=== PATIENT | male | born 1970 | race Caucasian/White ===

== ENCOUNTER 2024-03-29 11:15 | Emergency (ER) | payer BC, SELFPAY ==
[2024-03-29] VITALS (8 sets, daily range): BP systolic 130–166; BP diastolic 81–98; PULSE 42–50; TEMP 36.3; O2SAT 95–100; BMI 31.0
--- NOTE | 2024-03-29 11:31 | CT_ITS ---
[address] [address] Patient Name: LIBERTY FERMIN MRN: [id number] date: 1970 Sex: M Assigned Patient Location: ER Current Patient Location: ER Accession/Order Number: [id number] Exam Date: 03/29/2024 12:22 Report Date: 03/29/2024 13:22 At the request of: JONEL CANO Procedure: CT abdomen pelvis wo con EXAM: CT abdomen pelvis wo con HISTORY: left flank pain . History of renal calculi and diverticulitis. COMPARISON: CT scans 10/10/2019 including exams without and with contrast. TECHNIQUE: CT abdomen pelvis without contrast. Axial scans with reformatted coronal and sagittal images. Individualized dose reduction used for this exam. FINDINGS: Lower chest: Lung bases clear, lower chest unremarkable. No acute abnormality. ABDOMEN: Liver unremarkable without focal lesion. Normal-appearing gallbladder, no biliary dilatation. 14 mm left adrenal nodule low-attenuation consistent with benign adenoma new from previous. Right adrenal unremarkable. The pancreas, spleen unremarkable. No ascites or free fluid. No adenopathy. Normal size aorta. Kidneys urinary tract: Mild left hydronephrosis and hydroureter secondary to an obstructing calculus in the proximal ureter at the L3-4 level approximately 5 cm below the UP junction calculus approximately 5.2 mm diameter. Reference axial series 3 image 75, coronal series 5 image 58. Left ureter below this normal to the bladder. Low-attenuation lesion mid left kidney probable cortical cyst 1.6 cm. Multiple nonobstructing left renal calculi including an upper pole calculus 4.6 mm and mid renal calculus 5 mm. Other smaller calculi. Multiple nonobstructing right renal calculi, and no right hydronephrosis, normal ureter. Dominant calculi 7 mm upper pole and 8.3 mm lower pole. Numerous other smaller calculi. No bowel dilatation wall thickening or edema. Normal-appearing appendix right lower quadrant. Moderate gas and stool throughout the colon. Surgical clip sigmoid colon. No pericolonic fluid or inflammation. Large amount of fluid in the stomach consistent with recent meal. Pelvis: Enlarged prostate with calcification. Prostate approximately 5.5 x 4 cm diameter. Fluid-filled the bladder is fully heterogeneous possible debris or hemorrhage. Fat-containing right inguinal hernia. No adenopathy or free fluid. MUSCULOSKELETAL: No fracture or suspicious focal bone lesion. CT/CT abdomen pelvis wo con IMPRESSION: 1. Mild left hydronephrosis and ureter secondary to obstructing calculus in the proximal ureter approximately 5 cm below the UP junction. Calculus diameter 5.2 mm. 2. Multiple nonobstructing left and right renal calculi. No right ureteral calculus seen. 3. Enlarged prostate. Slightly heterogeneous fluid in the bladder possible debris or hemorrhage. 4. No bowel dilatation wall thickening or edema. Previous sigmoid colon surgery. Large amount of fluid in the stomach consistent with recent meal. Electronically authenticated by: VIDYA WATERS Date: 03/29/2024 13:22
[2024-03-29 11:39] LABS: Basophils Absolute Auto 0.1 10^3/uL (0.0-0.1); Basophils Percent Auto 0.8 % (0.2-2.0); Eosinophils Absolute Auto 0.2 10^3/uL (0.0-0.7); Eosinophils Percent Auto 2.7 % (0.9-7.0); Hematocrit 48.4 % (42.0-54.0); Hemoglobin 15.8 g/dL (14.0-18.0); Immature Granulocytes Abs Auto 0.04 10^3/uL (0.00-0.03); Immature Granulocytes Pct Auto 0.5 % (0.0-0.5); Lymphocytes Percent Auto 35.8 % (20.5-60.0); Mean Corpuscular HGB Conc 32.6 g/dL (29.9-35.2); Mean Corpuscular Hemoglobin 28.8 pg (25.9-34.0); Mean Corpuscular Volume 88.2 fL (80.0-94.0); Monocytes Absolute Auto 0.8 10^3/uL (0.3-0.8); Monocytes Percent Auto 9.2 % (1.7-12.0); Neutrophils Absolute Auto 4.2 10^3/uL (1.4-6.5); Platelet Count 275 10^3/uL (150-450); Red Blood Count 5.49 10^6/uL (4.70-6.10); Red Cell Distribution Width 12.9 % (11.0-15.0); White Blood Count 8.3 10^3/uL (4.0-11.0)
[2024-03-29] MEDS: 0.9 % SODIUM CHLORIDE 1,000 ML 999 ML IV (11:44)
[2024-03-29] MEDS: KETOROLAC TROMETHAMINE 30 MG/ML VIAL 15 MG IVP ×2 (11:44→13:41)
[2024-03-29] MEDS: MORPHINE SULFATE 4 MG/ML VIAL IV (11:44)
[2024-03-29] MEDS: ONDANSETRON PF 4 MG/2 ML VIAL IV (11:45)
[2024-03-29 11:47] LABS: Anion Gap 14.4; BUN Creatinine Ratio 10.5; Calcium 9.9 mg/dL (8.5-10.1); Carbon Dioxide 25.6 mmol/L (21.0-32.0); Chloride 105 mmol/L (98-107); Estimated GFR (African America >60 (>=60); Estimated GFR (Non-African Ame 56 (>=60); Glucose 110 mg/dL (74-106); Sodium 141 mmol/L (136-145)
--- NOTE | 2024-03-29 12:36 | ED.GENADUL1 ---
HPI HPI - General Adult General Chief complaint: Abdominal Pain Stated complaint: ABDOMINAL PAIN Time Seen by Provider: 03/29/24 11:27 Source: patient Mode of arrival: walk-in Limitations: no limitations History of Present Illness HPI narrative: 54-year-old male to the emergency Department chief complaint of sudden onset of left-sided flank pain that began approximately an hour prior to arrival. He has a history kidney stones similar presentations. His otherwise been at his baseline health. He reports nausea without vomiting. Denies any fever, sweats, chills. Falls with [facility]. Related Data Previous Rx's ?Medication ?Instructions ?Recorded naproxen 500 mg tablet 500 mg PO BID PRN pain #14 tabs 03/29/24 ondansetron 4 mg disintegrating 4 mg PO Q8H PRN nausea and 03/29/24 tablet vomiting 4 days #16 tabs oxycodone-acetaminophen 5 mg-325 1 tab PO Q4H PRN pain #18 tabs 03/29/24 mg tablet (Percocet) tamsulosin 0.4 mg capsule (Flomax) 0.4 mg PO DAILY #14 caps 03/29/24 Allergies Allergy/AdvReac Type Severity Reaction Status Date / Time No Known Drug Allergies Allergy Verified 03/29/24 11:21 Opioid HPI Opioid Management Most Recent Opioid Data: Last Pain Scale 10 03/29/24 11:31 Last ED Pain Assessment 03/29/24 12:37 Review of Systems ROS Status of ROS 10 or more systems reviewed and unremarkable except as noted in history and below Exam Narrative Exam Narrative: VITALS: I have reviewed the triage vital signs. GENERAL: Well developed, well appearing adult in no acute distress. NEURO: Alert and oriented. Moves all extremities. Face is symmetric and expressive. EYES: PERRL. No scleral icterus or conjunctival injection. No discharge. HENT: Normocephalic, atraumatic. Hearing is grossly intact. Nares grossly patent and without discharge. Mucous membranes moist. NECK: No JVD. Patient moves neck without restriction. CARDIO: Rhythm regular. Normal rate. PULM: Easy respirations. No increased work of breathing. No conversational dyspnea. GI/: Abdomen is soft and non-tender. Normoactive bowel sounds. EXTREMITIES: Symmetric muscle bulk. No joint swelling. No clubbing, cyanosis, or deformity. SKIN: Warm and dry. Normal turgor. No rash or lesions appreciated. PSYCH: Mood, affect, and interaction is appropriate to the setting. Constitutional Vital Signs, click to edit/add: Last Vital Signs Temp 97.4 F L 03/29/24 11:22 Pulse 42 L 03/29/24 14:37 Resp 18 03/29/24 14:37 BP 130/81 03/29/24 14:37 Pulse Ox 95 03/29/24 14:37 O2 Del Method Room Air 03/29/24 11:22 Course Vital Signs Vital signs: Vital Signs Temperature 97.4 F L 03/29/24 11:22 Pulse Rate 50 L 03/29/24 11:22 Respiratory Rate 20 03/29/24 11:22 Blood Pressure 166/98 H 03/29/24 11:22 Pulse Oximetry 99 03/29/24 11:22 Oxygen Delivery Method Room Air 03/29/24 11:22 Temperature 97.4 F L 03/29/24 11:22 Pulse Rate 42 L 03/29/24 14:37 Respiratory Rate 18 03/29/24 14:37 Blood Pressure 130/81 03/29/24 14:37 Pulse Oximetry 95 03/29/24 14:37 Oxygen Delivery Method Room Air 03/29/24 11:22 Medical Decision Making MDM Narrative Medical decision making narrative: 54-year-old male to the emergency Department with chief complaint of kidney stone pain. Vital stablee, the patient is afebrile. Order CT scan, urinalysis, basic labs. Morphine, Toradol, Zofran for symptoms. He is a significant amount of painful distress upon arrival. Patient agrees with this plan. Laboratory evaluation completed, results reviewed and noted. No major abnormalities. CT scan shows a 5 mm kidney stone at the UPJ. Patient reexamined. His symptoms are controlled. Patient is a candidate for outpatient therapy. He is given urology referral. Symptomatically medications for home. Return impressions were discussed. All questions were answered. The patient was discharged home. Medical Records Medical records reviewed: Yes I reviewed the patient's medical records Lab Data Lab results reviewed: Yes I reviewed the patient's lab results Labs: Lab Results 03/29/24 03/29/24 Range/Units 11:23 14:00 WBC 8.3 (4.0-11.0) 10^3/uL RBC 5.49 (4.70-6.10) 10^6/uL Hgb 15.8 (14.0-18.0) g/dL Hct 48.4 (42.0-54.0) % MCV 88.2 (80.0-94.0) fL MCH 28.8 (25.9-34.0) pg MCHC 32.6 (29.9-35.2) g/dL RDW 12.9 (11.0-15.0) % Plt Count 275 (150-450) 10^3/uL MPV 10.0 (9.5-13.5) fL Neut % (Auto) 51.0 (43.0-75.0) % Lymph % (Auto) 35.8 (20.5-60.0) % [place] % (Auto) 9.2 (1.7-12.0) % Eos % (Auto) 2.7 (0.9-7.0) % Baso % (Auto) 0.8 (0.2-2.0) % Neut # (Auto) 4.2 (1.4-6.5) 10^3/uL Lymph # (Auto) 3.0 (1.2-3.8) 10^3/uL [place] # (Auto) 0.8 (0.3-0.8) 10^3/uL Eos # (Auto) 0.2 (0.0-0.7) 10^3/uL Baso # (Auto) 0.1 (0.0-0.1) 10^3/uL Abs Immat Gran (auto) 0.04 H (0.00-0.03) 10^3/uL Imm/Tot Granulo (auto) 0.5 (0.0-0.5) % Sodium 141 (136-145) mmol/L Potassium 4.0 (3.5-5.1) mmol/L Chloride 105 (98-107) mmol/L Carbon Dioxide 25.6 (21.0-32.0) mmol/L Anion Gap 14.4 BUN 14.0 (7.0-18.0) mg/dL Creatinine 1.33 H (0.70-1.30) mg/dL Est GFR ( Amer) >60 (>=60) Est GFR (Non-Af Amer) 56 L (>=60) BUN/Creatinine Ratio 10.5 Glucose 110 H (74-106) mg/dL Calcium 9.9 (8.5-10.1) mg/dL Urine Color Brown A (YELLOW) Urine Clarity Clear (CLEAR) Urine pH 7.0 (5.0-9.0) Ur Specific [place] 1.020 (1.005-1.025) Urine Protein Trace (NEG/TRACE) mg/dL Urine Glucose (UA) Negative (NEGATIVE) mg/dL Urine Ketones Negative (NEGATIVE) mg/dL Urine Occult Blood Large A (NEGATIVE) Urine Nitrite Negative (NEGATIVE) Urine Bilirubin Negative (NEGATIVE) Urine Urobilinogen 1.0 (0.2-1.0) EU/dL Ur Leukocyte Esterase Negative (NEGATIVE) Urine RBC >100 A (0-2) #/HPF Urine WBC 0-2 A (NONE SEEN) #/HPF Ur Squamous Epith Cells Rare (NONE/RARE) #/LPF Urine Crystals None seen (None Seen) #/HPF Urine Bacteria Trace A (NONE SEEN) #/HPF Urine Casts None seen (NONE SEEN) #/LPF Urine Mucus None seen (NONE SEEN) Ur Culture Indicated? No Imaging Data CT scan - abdomen: Attestation: I personally reviewed and interpreted this imaging study as follows: Radiologist's impression: ITS Impressions Abdomen/Pelvis CT 03/29/24 11:31 IMPRESSION: 1. Mild left hydronephrosis and ureter secondary to obstructing calculus in the proximal ureter approximately 5 cm below the UP junction. Calculus diameter 5.2 mm. 2. Multiple nonobstructing left and right renal calculi. No right ureteral calculus seen. 3. Enlarged prostate. Slightly heterogeneous fluid in the bladder possible debris or hemorrhage. 4. No bowel dilatation wall thickening or edema. Previous sigmoid colon surgery. Large amount of fluid in the stomach consistent with recent meal. Electronically authenticated by: VIDYA WATERS Date: 03/29/2024 13:22 Discharge Plan Discharge Stand Alone Forms: Portal Instructions Chief Complaint: Abdominal Pain Clinical Impression: Renal colic on left side Patient Disposition: Home, Self-Care Time of Disposition Decision: 14:24 Condition: Good Mode of Transportation: Private Vehicle Prescriptions / Home Meds: New tamsulosin [Flomax] 0.4 mg capsule 0.4 mg PO DAILY Qty: 14 0RF naproxen 500 mg tablet 500 mg PO BID PRN (Reason: pain) Qty: 14 0RF ondansetron 4 mg tablet,disintegrating 4 mg PO Q8H PRN (Reason: nausea and vomiting) 4 Days Qty: 16 0RF oxycodone-acetaminophen [Percocet] 5-325 mg tablet 1 tab PO Q4H PRN (Reason: pain) Qty: 18 0RF Print Language: Italian Instructions: Renal Colic (ED) Additional Instructions: Strain urine. Referrals: Robles Spencer MD [Physician] - 1 week (Return to the ED if symptoms worsening. ) Zana Camp MD [Primary Care Provider] - 1 week Discharge Date/Time: 03/29/24 14:41
[2024-03-29] MEDS: HYDROMORPHONE HCL 0.5 MG/0.5 ML SYRINGE IV (13:40)
[2024-03-29 14:10] LABS: Bilirubin Urine NEGATIVE (NEGATIVE); Blood Urine LARGE (NEGATIVE); Clarity Urine CLEAR (CLEAR); Glucose Urine UA NEGATIVE (NEGATIVE); Ketones Urine NEGATIVE (NEGATIVE); Leukocyte Esterase Urine NEGATIVE (NEGATIVE); Nitrite Urine NEGATIVE (NEGATIVE); Protein Urine TRACE mg/dL (NEG/TRACE)
[2024-03-29 14:12] LABS: Color Urine BROWN (YELLOW); Urine Microscopic Indicated YES
[2024-03-29 14:21] LABS: Bacteria Urine TRACE #/HPF (NONE SEEN); Cast Seen? NONE SEEN #/LPF (NONE SEEN); Crystals Seen? None Seen #/HPF (None Seen); Mucus Urine NONE SEEN (NONE SEEN); RBC Urine >100 #/HPF (0-2); Squamous Epithelial Cell Urine RARE #/LPF (NONE/RARE); Urine Culture Indicated NO; WBC Urine 0-2 #/HPF (NONE SEEN)
== END 2024-03-29 14:41 | disposition home or self-care (01) ==
PROVIDERS: Emergency Provider Student in an Organized Health Care Education/Training Program; PCP Family Medicine
DX: N13.2 Hydronephrosis with renal and ureteral calculous obstruction (principal); R10.9 Unspecified abdominal pain; Z87.442 Personal history of urinary calculi
CPT/HCPCS: 36415; 74176; 80048; 81001; 85025; 96374; 96375; 96376; 99284; J1170

== ENCOUNTER 2024-03-31 06:36 | Observation (INO) | payer BC, SELFPAY ==
[2024-03-31] VITALS (31 sets, daily range): BP systolic 133–173; BP diastolic 64–102; PULSE 52–72; TEMP 36.2–36.9; O2SAT 82–98; BMI 31.0; BMI 30.3
--- NOTE | 2024-03-31 | FL_ITS ---
[address] [address] Patient Name: LIBERTY FERMIN MRN: [id number] date: 1970 Sex: M Assigned Patient Location: MS Current Patient Location: Accession/Order Number: [id number] Exam Date: 03/31/2024 19:30 Report Date: 04/02/2024 08:31 At the request of: OMKAR CASTREJON Procedure: FL fluoroscopy <1hr NON-READ EXAM: FL fluoroscopy <1hr NON-READ HISTORY: TECHNIQUE: FINDINGS: Please see Operative Report. Electronically authenticated by: RADIOLOGIST NO Date: 04/02/2024 08:31
--- OUTSIDE RECORDS SUMMARY | 2024-03-31 06:42 | XMS_ITS | CCD ---
Author Organization [facility] Care Team Providers Care Risk Control Officer Name Role Phone OMKAR CASTREJON Primary Care Unavailable PAY, SUSY Admitting Unavailable PAY, SUSY Attending Unavailable MIREILLE GARCIA V Consulting Unavailable PAY, SUSY Consulting Unavailable RAMYA, WES Consulting Unavailable OMKAR CASTREJON Admitting Unavailable OMKAR CASTREJON Attending Unavailable MIREILLE GARCIA V Consulting Unavailable OMKAR CASTREJON Consulting Unavailable Problems Active Problems Problem Classification Problem Date Documented Da te Episodic/Chronic Spondylosis; intervertebral disc disorders; other back problems (4 sources) Dorsalgia, unspecified; Translations: [DORSALGIA UNSPECIFIED] Onset: 07-06-2020 Episodic Past or Other Problems Problem Classification Problem Date Documented Da te Episodic/Chronic Abdominal pain (4 sources) Unspecified abdominal pain; Translations: [UNSPECIFIED ABDOMINAL PAIN] Onset: 10-10-2019 Episodic Calculus of urinary tract (2 sources) Calculus of ureter; Translations: [Personal history of urinary calculi] Onset: 10-14-2019 Episodic Nausea and vomiting (1 source) Nausea; Translations: [NAUSEA] Onset: 10-14-2019 Episodic Results Test Name Value Interpretation Reference Range Facil ity XR TSPINE 2 VIEWSon 07-06-20 20 XR TSPINE 2 VIEWS EXAMINATION: XR TSPINE 2 VIEWS HISTORY: Pain in thoracic spine COMPARISON: No relevant comparison available. FINDINGS: BONES: Mild widespread spondylosis and facet osteoarthritis. No visible acute bony abnormality. DISC SPACES: Normal. No significant disc height narrowing, subluxation, or endplate abnormality. PARASPINOUS: Negative. No paraspinous abnormality is seen. OTHER: Negative. IMPRESSION: Mild degenerative changes Electronically authenticated by: MIREILLE GARCIA Date: 2020-07-06 14:36 Normal [facility] XR TSPINE 2 VIEWS EXAMINATION: XR TSPINE 2 VIEWS HISTORY: Pain in thoracic spine ; acute pain between shoulder blades COMPARISON: No relevant comparison available. FINDINGS: BONES: No significant spondylosis, scoliosis, fracture, or visible bony lesion. DISC SPACES: No significant disc height narrowing, subluxation, or endplate abnormality. PARASPINOUS: Negative. No paraspinous abnormality is seen. OTHER: Negative. IMPRESSION: 1. No acute bone abnormality or significant degenerative changes. Electronically authenticated by: SIM MCLAUGHLIN Date: 2020-07-06 14:28 Normal [facility] CBC AUTO DIFFon 10-10-2019 Basophils (Bld) [#/Vol] 0.0 103/ul Normal 0.0-0.1 [facility] Comment on above: Performed By: #### C BC #### [facility] [address] [id number] [place] Basophils/100 WBC (Bld) 0.4 % Normal 0.2-2.0 [facility] Comment on above: Performed By: #### C BC #### [facility] [address] [place] [address] [place] Eosinophils (Bld) [#/Vol] 0.1 103/ul Normal 0.0-0.7 [facility] Comment on above: Performed By: #### C BC #### [facility] [address] [place], [place] [id number] [place] Eosinophils/100 WBC (Bld) 1.4 % Normal 0.9-7.0 [facility] Comment on above: Performed By: #### C BC #### [facility] [address] [place], [place] [phone] [place] Erythrocyte distribution width (RBC) [Ratio] 13.1 % Normal 11.0-15.0 [facility] Comment on above: Performed By: #### C BC #### [facility] [address] [place], [place] [phone] [place] Hematocrit (Bld) [Volume fraction] 50.0 % Normal 42.0-54.0 [facility] Comment on above: Performed By: #### C BC #### [facility] [address] [place] [address] [place] Hemoglobin (Bld) [Mass/Vol] 16.8 g/dL Normal 14.0-18.0 [facility] Comment on above: Performed By: #### C BC #### [facility] [address] [place], [place] [address] [place] IG # 0.04 10e3/ul Critically high 0.00-0.03 [facility] Comment on above: Performed By: #### C BC #### [facility] [address] [id number] [place] IG % 0.5 % Normal 0.0-0.5 [facility] Comment on above: Performed By: #### C BC #### [facility] [address] [id number] [place] Lymphocytes (Bld) [#/Vol] 2.4 103/ul Normal 1.2-3.8 [facility] Comment on above: Performed By: #### C BC #### [facility] [address] [place], [place] [phone] [place] Lymphocytes/100 WBC (Bld) 29.3 % Normal 20.5-60.0 [facility] Comment on above: Performed By: #### C BC #### [facility] [address] [place], [place] [phone] [place] MANUAL DIFF REQ NO Normal [facility] Comment on above: Performed By: #### C BC #### [facility] [address] [place] [address] [place] MCH (RBC) [Entitic mass] 29.3 pg Normal 25.9-34.0 [facility] Comment on above: Performed By: #### C BC #### [facility] [address] [place], [place] [phone] [place] MCHC (RBC) [Mass/Vol] 33.6 g/dL Normal 29.9-35.2 [facility] Comment on above: Performed By: #### C BC #### [facility] [address] [place], [place] [phone] [place] MCV (RBC) [Entitic vol] 87.1 fL Normal 80.0-94.0 [facility] Comment on above: Performed By: #### C BC #### [facility] [address] [place], [place] [address] [place] Monocytes (Bld) [#/Vol] 0.7 103/ul Normal 0.3-0.8 [facility] Comment on above: Performed By: #### C BC #### [facility] [address] [place], [place] [address] [place] Monocytes/100 WBC (Bld) 8.2 % Normal 1.7-12.0 [facility] Comment on above: Performed By: #### C BC #### [facility] [address] [place] [address] [place] Neutrophils (Bld) [#/Vol] 4.8 103/ul Normal 1.4-6.5 [facility] Comment on above: Performed By: #### C BC #### [facility] [address] [place] [address] [place] Neutrophils/100 WBC (Bld) 60.2 % Normal 43.0-75.0 [facility] Comment on above: Performed By: #### C BC #### [facility] [address] [place] [address] [place] Platelet mean volume (Bld) [Entitic vol] 10.2 fL Normal 9.5-13.5 [facility] Comment on above: Performed By: #### C BC #### [facility] [address] [place] [address] [place] Platelets (Bld) [#/Vol] 192 103/ul Normal 150-450 [facility] Comment on above: Result Comment: Plat elet clumps seen on slide. Count may be falsely decreased. Performed By: #### C BC #### [facility] [address] [place] [address] [place] RBC (Bld) [#/Vol] 5.74 106/ul Normal 4.70-6.10 [facility] Comment on above: Performed By: #### C BC #### [facility] [address] [place] [address] [place] WBC (Bld) [#/Vol] 8.0 103/ul Normal 4.0-11.0 [facility] Comment on above: Performed By: #### C #### [facility] [address] [phone] [address] ABD/PELVIS WO CONon 10-10 CT ABD/PELVIS WO CON Patient: LIBERTY FERMIN Exam Date: 10/10/2019 : 1970 Gender:M Ordering : SHARLA MAGDALENO Admission #: [id number] Family : DR SUSY STILL D.O. Order #: [id number] CLICK HERE TO VIEW EXAM RADIOLOGY REPORT PROCEDURE: CT ABDOMEN AND PELVIS WITHOUT CONTRAST COMPARISON: CT ABD/PELVIS WO CON, 05/12/2018. INDICATIONS: Acute right flank pain, calculus of kindey TECHNIQUE: Axial, Coronal, and Sagittal CT images of the abdomen and pelvis were created without IV contrast material. DOSE: 2186 mGycm FINDINGS: KIDNEY - RIGHT: Numerous nonobstructing nephroliths. Mild hydronephrosis URETER - RIGHT: Mild hydroureter extending to a 4 mm round calcification in the mid ureter axial image 81 KIDNEY - LEFT: Numerous nonobstructing nephroliths. No hydronephrosis URETER - LEFT: No calcifications or abnormal dilation. URINARY BLADDER: No calculus, visible focal wall thickening, or lesion. LUNG BASES: No visible pulmonary or pleural disease. LIVER: No enlargement, atrophy, abnormal density, or significant focal lesion. BILIARY: No visible dilatation or calcification. PANCREAS: No lesion, fluid collection, ductal dilatation, or atrophy. SPLEEN: No enlargement or focal lesion. ADRENALS: No mass or enlargement. BOWEL/MESENTERY: Colonic diverticulosis. Thickened appearance of the sigmoid colon likely related to non distention. Normal appendix. AORTA/VASCULAR: No aneurysm. RETROPERITONEUM: No mass or adenopathy. LYMPH NODES: No adenopathy. PELVIC ORGANS: No visible mass. Pelvic organs appropriate for patient age. ABDOMINAL WALL: No mass or hernia. BONES: No bony lesion or fracture. CONCLUSION: 1. 4 mm right mid ureterolith with mild associated obstructive uropathy Dictated by: Mireille Garcia M.D. on 10/10/2019 at 13:02 Approved by: Mireille Garcia M.D. on 10/10/2019 at 13:08 Normal [facility] CULTURE URINEon 10-10-2019 CULTURE URINE Culture Observations : NO GROWTH Normal [facility] Comment on above: Performed By: #### U RCX #### [facility] [address] [place], [place] [phone] [place] ER URINE PROFILEon 9 Bilirubin [Mass/Vol] SMALL Normal NEGATIVE [facility] Comment on above: Performed By: #### DAMIÁN ROMERORO #### [facility] [address] [place] [address] [place] BLOOD LARGE Normal NEGATIVE [facility] Comment on above: Performed By: #### DAMIÁN ROMERORO #### [facility] [address] [place] [address] [place] Clarity (U) CLEAR Normal [facility] Comment on above: Performed By: #### DAMIÁN ROMERORO #### [facility] [address] [place] [address] [place] Color (U) BROWN Normal YELLOW [facility] Comment on above: Performed By: #### DAMIÁN ROMERORO #### [facility] [address] [place] [address] [place] ERUAHD A micrscopic examination will be performed if indicated. Normal [facility] Comment on above: Performed By: #### DAMIÁN ROMERORO #### [facility] [address] [place] [address] [place] Glucose [Mass/Vol] Negative Normal NEGATIVE [facility] Comment on above: Performed By: #### DAMIÁN ROMERORO #### [facility] [address] [place] [address] [place] Ketones Ql (U) Negative Normal NEGATIVE [facility] Comment on above: Performed By: #### DAMIÁN ROMERORO #### [facility] [address] [place] [address] [place] Nitrite Ql (U) Negative Normal NEGATIVE [facility] Comment on above: Performed By: #### DAMIÁN ROMERORO #### [facility] [address] [phone] [place] pH (Bld) 6.0 Normal 5-9 [facility] Comment on above: Performed By: #### CAIO ROMERO #### [facility] [address] [phone] [place] Protein (U) [Mass/Vol] 100 mg/dL Normal [facility] Comment on above: Performed By: #### CAIO ROMERO #### [facility] [address] [place], [place] [address] [place] SPEC GRAVITY 1.025 Normal 1.005-<=1.025 [facility] Comment on above: Performed By: #### CAIO ROMERO #### [facility] [address] [place], [place] [address] [place] UR MICRO IND INDICATED Normal [facility] Comment on above: Performed By: #### CAIO ROMERO #### [facility] [address] [place] [address] [place] Urobilinogen Qn (U) 0.2 EU/dl Normal [facility] Comment on above: Performed By: #### CAIO ROMERO #### [facility] [address] [place], [place] [address] [place] WBC (Bld) [#/Vol] Negative Normal NEGATIVE [facility] Comment on above: Performed By: #### CAIO ROMERO #### [facility] [address] [place], [place] [address] [place] LACTATE/LACTIC ACIDon 2018 Lactate [Moles/Vol] 2.4 mmol/L Critically high 0.7-2.1 [facility] Comment on above: Performed By: #### L ACT #### [facility] [address] [place] [address] [place] Lactate [Moles/Vol] 4.2 mmol/L Critically high 0.7-2.1 [facility] Comment on above: Result Comment: crit ical value repeated and verified Performed By: #### L ACT #### [facility] [address] [place], [place] [address] [place] LIPASEon 10-10-2019 Lipase [Catalytic activity/Vol] 121.0 U/L Normal 23.0-300.0 [facility] Comment on above: Performed By: #### L IPA, CMP #### [facility] [address] [place], [place] [address] [place] Ortiz PROF 14(COMP METB)on 019 Albumin [Mass/Vol] 4.4 g/dL Normal 3.5-5.0 [facility] Comment on above: Performed By: #### L IPA, CMP #### [facility] [address] [place], [place] [address] [place] Albumin/Globulin [Mass ratio] 1.3 {ratio} Normal [facility] Comment on above: Performed By: #### L IPA, CMP #### [facility] [address] [place] [address] [place] ALP [Catalytic activity/Vol] 86 U/L Normal 38-126 [facility] Comment on above: Performed By: #### L IPA, CMP #### [facility] [address] [place] [address] [place] ALT [Catalytic activity/Vol] 42 U/L Normal 21-72 [facility] Comment on above: Performed By: #### L IPA, CMP #### [facility] [address] [place], [place] [address] [place] Anion gap [Moles/Vol] 18.8 mmol/L Normal [facility] Comment on above: Performed By: #### L IPA, CMP #### [facility] [address] [place], [place] [address] [place] AST [Catalytic activity/Vol] 25 U/L Normal 17-59 [facility] Comment on above: Performed By: #### L IPA, CMP #### [facility] [address] [place] [address] [place] Bilirubin Ql (U) 0.5 mg/dL Normal 0.2-1.3 [facility] Comment on above: Performed By: #### L IPA, CMP #### [facility] [address] [address] [place] Calcium [Mass/Vol] 9.9 mg/dL Normal 8.4-10.2 [facility] Comment on above: Performed By: #### L IPA, CMP #### [facility] [address] [address] [place] Chloride [Moles/Vol] 104 mmol/L Normal 98-107 [facility] Comment on above: Performed By: #### L IPA, CMP #### [facility] [address] [address] [place] CO2 [Moles/Vol] 22.5 mmol/L Normal 22.0-30.0 [facility] Comment on above: Performed By: #### L IPA, CMP #### [facility] [address] [address] [place] Creatinine [Mass/Vol] 1.29 mg/dL Critically high 0.66-1.25 [facility] Comment on above: Performed By: #### L IPA, CMP #### [facility] [address] [address] [place] EGFR-AF POLISH >60 Normal >=60 [facility] Comment on above: Performed By: #### L IPA, CMP #### [facility] [address] [address] [place] EGFR-NON AF POLISH 59 mL/min/1.73m2 Critically low >=60 [facility] Comment on above: Performed By: #### L IPA, CMP #### [facility] [address] [phone] [place] Globulin (S) [Mass/Vol] 3.3 g/dL Normal [facility] Comment on above: Performed By: #### L IPA, CMP #### [facility] [address] [phone] [place] Glucose [Mass/Vol] 118 mg/dL Critically high 74-106 [facility] Comment on above: Performed By: #### L IPA, CMP #### [facility] [address] [address] [place] Potassium [Moles/Vol] 3.3 mmol/L Critically low 3.4-5.0 [facility] Comment on above: Performed By: #### L IPA, CMP #### [facility] [address] [address] [place] Protein [Mass/Vol] 7.7 g/dL Normal 6.1-8.2 [facility] Comment on above: Performed By: #### L IPA, CMP #### [facility] [address] [phone] [place] Sodium [Moles/Vol] 142 mmol/L Normal 137-145 [facility] Comment on above: Performed By: #### L IPA, CMP #### [facility] [address] [place], [place] [address] [place] Urea nitrogen [Mass/Vol] 11.0 mg/dL Normal 9.0-20.0 [facility] Comment on above: Performed By: #### L IPA, CMP #### [facility] [address] [id number] [place] Urea nitrogen/Creatinine [Mass ratio] 8.5 mg/mg Normal [facility] Comment on above: Performed By: #### L IPA, CMP #### [facility] [address] [phone] [place] URINE MICROSCOPIC ONLYon Bacteria LM.HPF (Urine sed) [#/Area] SMALL Normal NONE SEEN [facility] Comment on above: Performed By: #### CAIO ROMERO #### [facility] [address] [id number] [place] CAST NONE SEEN Normal NONE SEEN [facility] Comment on above: Performed By: #### CAIO ROMERO #### [facility] [address] [phone] [place] Crystals LM Nom (Urine sed) NONE SEEN Normal NONE SEEN [facility] Comment on above: Performed By: #### CAIO ROMERO #### [facility] [address] [address] [place] CULTURE INDICATED Normal [facility] Comment on above: Performed By: #### CAIO ROMERO #### [facility] [address] [phone] [place] Epithelial cells LM.HPF (Urine sed) [#/Area] RARE Normal [facility] Comment on above: Performed By: #### CAIO ROMERO #### [facility] [address] [phone] [place] MUCOUS NONE SEEN Normal NONE SEEN [facility] Comment on above: Performed By: #### CAIO ROMERO #### [facility] [address] [address] [place] RBC (U) [#/Vol] /uL Normal 0-2 [facility] Comment on above: Performed By: #### CAIO ROMERO #### [facility] [address] [address] [place] WBC (Bld) [#/Vol] 0-2 Normal NONE SEEN [facility] Comment on above: Performed By: #### CAIO ROMERO #### [facility] [address] [id number] [place] Yeast LM Ql (Urine sed) PRESENT Normal [facility] Comment on above: Performed By: #### CAIO ROMERO #### [facility] [address] [phone] [place] Encounters Encounter Date Encounter Type Care Provider Facility Start: 07-06-2020 End: 07-07-2020 Patient encounter procedure [facility] Start: 10-10-2019 End: 10-10-2019 Patient encounter procedure [facility]:H1 Payers Date Payer Category Payer Unknown [id number] 1970 Unknown [id number] 1959 Unknown [id number] Summary Purpose Family History No Family History Records Found Advance Directives No Advanced Directives Records Found Additional Source Comments (unrecognized sect ion and content) No Status Records Found INFORMATION SOURCE (unrecogn ized section and content) DATE CREATED AUTHOR 07/13/2020 [facility] FOR RECORDS PERTAINING TO PATIENTS WHO ARE OR HAVE BEEN ENROLLED IN A CHEMICAL DEPENDENCY/SUBSTANCEABUSE PROGRAM, SOME INFORMATION MAY BE OMITTED. This clinical summary was aggregated from multiple sources. Caution should be exercised in using it in the provision of clinical care. This summary normalizes information from multiple sources, and as a consequence, information in this document may materially change the coding, format and clinical context of patient data. In addition, data may be omitted in some cases. CLINICAL DECISIONS SHOULD BE BASED ON THE PRIMARY CLINICAL RECORDS. [facility]. provides no warranty or guarantee of the accuracy or completeness of information in this document.
[2024-03-31 07:06] LABS: Basophils Percent Auto 0.3 % (0.2-2.0); Eosinophils Percent Auto 0.3 % (0.9-7.0); Hematocrit 44.4 % (42.0-54.0); Hemoglobin 14.9 g/dL (14.0-18.0); Immature Granulocytes Abs Auto 0.03 10^3/uL (0.00-0.03); Immature Granulocytes Pct Auto 0.3 % (0.0-0.5); Lymphocytes Absolute Auto 2.4 10^3/uL (1.2-3.8); Mean Corpuscular HGB Conc 33.6 g/dL (29.9-35.2); Mean Corpuscular Hemoglobin 28.9 pg (25.9-34.0); Mean Platelet Volume 10.7 fL (9.5-13.5); Monocytes Absolute Auto 1.3 10^3/uL (0.3-0.8); Monocytes Percent Auto 10.6 % (1.7-12.0); Neutrophils Absolute Auto 8.2 10^3/uL (1.4-6.5); Neutrophils Percent Auto 68.5 % (43.0-75.0); Platelet Count 235 10^3/uL (150-450); Red Blood Count 5.16 10^6/uL (4.70-6.10); White Blood Count 11.9 10^3/uL (4.0-11.0)
[2024-03-31] MEDS: 0.9 % SODIUM CHLORIDE 1,000 ML 999 ML IV (07:11)
[2024-03-31] MEDS: KETOROLAC TROMETHAMINE 30 MG/ML VIAL IVP ×3 (07:12→21:05)
--- NOTE | 2024-03-31 07:16 | XR_ITS ---
The [address] [address] Patient Name: LIBERTY FERMIN MRN: [id number] date: 1970 Sex: M Assigned Patient Location: ER Current Patient Location: ER Accession/Order Number: [id number] Exam Date: 03/31/2024 07:35 Report Date: 03/31/2024 08:00 At the request of: SUSY STILL Procedure: XR abdomen 1V EXAMINATION: XR abdomen 1V HISTORY: flank pain , left COMPARISON: CT abdomen pelvis 03/29/2024 FINDINGS: KIDNEY/URETER - RIGHT: Stable renal calcifications. KIDNEY/URETER - LEFT: Grossly stable renal calcifications. Previously seen proximal ureteral stone is not visible on today's study. PELVIS: Stable pelvic calcifications compatible with phleboliths. Calcification overlying inferior margin of the left sacroiliac joint represents atherosclerotic disease. BOWEL: No abnormal dilation or deviation. BONES: No acute abnormality. OTHER: Negative. No abnormal gaseous collections. XR/XR abdomen 1V IMPRESSION: 1. The previously seen left ureteral stone is not visible on today's study and may have passed. 2. Bilateral nephrolithiasis. Electronically authenticated by: SIM MCLAUGHLIN Date: 03/31/2024 08:00
[2024-03-31] MEDS: HYDROMORPHONE HCL 1 MG/ML CARTRIDGE IV ×2 (07:24→10:26)
[2024-03-31 07:31] LABS: Anion Gap 15.9; BUN Creatinine Ratio 12.6; Calcium 9.4 mg/dL (8.5-10.1); Carbon Dioxide 21.5 mmol/L (21.0-32.0); Chloride 104 mmol/L (98-107); Estimated GFR (African America 47 (>=60); Estimated GFR (Non-African Ame 39 (>=60); Glucose 102 mg/dL (74-106); Potassium 3.4 mmol/L (3.5-5.1); Sodium 138 mmol/L (136-145)
[2024-03-31] MEDS: ONDANSETRON PF 4 MG/2 ML VIAL IV (07:31)
--- NOTE | 2024-03-31 07:31 | ED_ITS ---
HPI HPI - General Adult General Chief complaint: Back Pain/Injury Stated complaint: flank pain Time Seen by Provider: 03/31/24 06:52 Source: patient Mode of arrival: walk-in Limitations: no limitations History of Present Illness HPI narrative: Patient is a 54-year-old male who is presenting to the ER today with chief complaint of kidney stone pain. Patient was just in the ER and started. Patient had a 5 mm kidney stone, with mild hydronephrosis. Patient sees Dr. Mckeon and Dr. Mckeon office for kidney stone. Patient was in the ER on Sunday, patient had lab work and a CAT scan done. Patient came back to the ER today secondary to pain. All systems are negative except as noted/marked. All systems reviewed and otherwise negative. Nurses note and vital signs reviewed and patient is not hypoxic. General: The patient appears well in mod to severe pain. Patient is resting uncomfortably on cart. Patient is not toxic, lethargic, or listless Skin: Warm, dry, no pallor noted. There is no rash noted. No petechiae, purpura. Head: Normocephalic, atraumatic Eye: Normal conjunctiva, no drainage, EOMI. PERRL Ears, Nose, Mouth, and Throat: oral mucosa is moist. Nares patent. Mouth without vesicles. Cardiovascular: Regular Rate and Rhythm, no murmur, gallop, rub Respiratory: Patient is in no distress, no accessory muscle use, lungs are clear to auscultation, no wheezing, rales or rhonchi Back: Moderate left CVA tenderness palpation, mild left flank pain, no left lower quadrant tenderness palpation; otherwise non-tender, no CVA tenderness bilaterally to percussion. No CT LS midline pain GI: obese, no tenderness to palpation, no masses appreciated. No rebound, guarding, or rigidity noted. No distention Musculoskeletal: Patient has full range of motion of all of the extremities, no motor, sensory, or focal neurological deficits Neurological: A&O x4, normal speech Psychiatric: Cooperative Related Data Previous Rx's ?Medication ?Instructions ?Recorded naproxen 500 mg tablet 500 mg PO BID PRN pain #14 tabs 03/29/24 ondansetron 4 mg disintegrating 4 mg PO Q8H PRN nausea and 03/29/24 tablet vomiting 4 days #16 tabs oxycodone-acetaminophen 5 mg-325 1 tab PO Q4H PRN pain #18 tabs 03/29/24 mg tablet (Percocet) tamsulosin 0.4 mg capsule (Flomax) 0.4 mg PO DAILY #14 caps 03/29/24 Allergies Allergy/AdvReac Type Severity Reaction Status Date / Time No Known Drug Allergies Allergy Verified 03/31/24 06:43 Opioid HPI Opioid Management Most Recent Opioid Data: Last Pain Scale 1 03/31/24 15:00 Last Pain Assessment 03/31/24 18:00 Last ED Pain Assessment 03/31/24 06:51 Last MAR Pain Assessment 03/31/24 14:45 Last ORT Total Score 0 03/31/24 09:37 Last ORT Risk Category Low Risk 03/31/24 09:37 PFSH PFSH Medical History (Updated 03/31/24 @ 11:17 by Zana Camp MD) Thoracic spondylosis ?M47.814 - Spondylosis without myelopathy or radiculopathy, thoracic region (ICD-10) Gout ?M10.9 - Gout, unspecified (ICD-10) Surgical History (Updated 03/31/24 @ 09:31 by Raina Bey) History of colon resection ?Z90.49 - Acquired absence of other specified parts of digestive tract (ICD- 10) Family History (Updated 03/31/24 @ 09:33 by Raina Bey) Mother Family history not known due to adoption Social History Highest level of school completed/degree received: Bachelor's degree Do you think of yourself as: straight/heterosexual Gender Identity: male Exam Constitutional Vital Signs, click to edit/add: Last Vital Signs Temp 98.2 F 03/31/24 14:00 Pulse 53 L 03/31/24 14:00 Resp 18 03/31/24 14:00 BP 134/74 03/31/24 14:00 Pulse Ox 95 03/31/24 14:00 O2 Del Method Room Air 03/31/24 14:00 Course Vital Signs Vital signs: Vital Signs Temperature 98.3 F 03/31/24 06:39 Pulse Rate 58 L 03/31/24 06:39 Respiratory Rate 18 03/31/24 06:39 Blood Pressure 162/94 H 03/31/24 06:39 Pulse Oximetry 97 03/31/24 06:39 Oxygen Delivery Method Room Air 03/31/24 06:39 Temperature 98.2 F 03/31/24 14:00 Pulse Rate 53 L 03/31/24 14:00 Respiratory Rate 18 03/31/24 14:00 Blood Pressure 134/74 03/31/24 14:00 Pulse Oximetry 95 03/31/24 14:00 Oxygen Delivery Method Room Air 03/31/24 14:00 Medical Decision Making MDM Narrative Medical decision making narrative: Patient's initial HPI, physical exam, and orders were placed by Dr. Bey. Patient was transition to myself from Dr. Bey at [address] Da Silva added additional IV Dilaudid, Zofran, IV fluids, and will review patient's CT report from Sunday, today's lab work and x-ray, and performed final disposition. [address] Spencer, urologist, and agrees with admission with him in consultation. He stated that patient may be admitted to medicine, patient is not any type of blood thinners. Patient will remain n.p.o. throughout the day, patient will have his urine strain, Dr. Spencer is currently operating till this evening, he will attempt to get to the patient today, may possibly not be able to do surgery until tomorrow. Patient is aware of this along with . Patient BUN and creatinine has increased from Sunday. Patient's BUN and creatinine Sunday is 14/1.3. Patient's BUN and creatinine today are 23/1.8. 0855 I spoke to admitting physician, Dr. Camp. He is aware of consultation with Dr. Spencer, agrees to admission. Dr. Camp is patient's PCP. Patient's pain is currently a 3/10. KUB did not show obvious left ureter stone, it does show bilateral nephrolithiasis. Patient does not want any additional pain or nausea medication at this time. Patient will follow-up with PCP and urologist on the inpatient floor. Patient is agreeing to admission. Patient stated that he did have a few episodes of nausea and vomiting starting night. Patient stated the pain has been coming and going to the weekend, patient admittedly has not been drinking much urine. Patient's agrees that patient be admitted to the hospital. Patient says the only time he had a stent was approximately 20 years ago when he was 7.2 mm stone at that time where he had lithotripsy and a stent placed. Lab Data Labs: Lab Results 03/31/24 Range/Units 06:45 WBC 11.9 H (4.0-11.0) 10^3/uL RBC 5.16 (4.70-6.10) 10^6/uL Hgb 14.9 (14.0-18.0) g/dL Hct 44.4 (42.0-54.0) % MCV 86.0 (80.0-94.0) fL MCH 28.9 (25.9-34.0) pg MCHC 33.6 (29.9-35.2) g/dL RDW 13.0 (11.0-15.0) % Plt Count 235 (150-450) 10^3/uL MPV 10.7 (9.5-13.5) fL Neut % (Auto) 68.5 (43.0-75.0) % Lymph % (Auto) 20.0 L (20.5-60.0) % [place] % (Auto) 10.6 (1.7-12.0) % Eos % (Auto) 0.3 L (0.9-7.0) % Baso % (Auto) 0.3 (0.2-2.0) % Neut # (Auto) 8.2 H (1.4-6.5) 10^3/uL Lymph # (Auto) 2.4 (1.2-3.8) 10^3/uL [place] # (Auto) 1.3 H (0.3-0.8) 10^3/uL Eos # (Auto) 0.0 (0.0-0.7) 10^3/uL Baso # (Auto) 0.0 (0.0-0.1) 10^3/uL Abs Immat Gran (auto) 0.03 (0.00-0.03) 10^3/uL Imm/Tot Granulo (auto) 0.3 (0.0-0.5) % Sodium 138 (136-145) mmol/L Potassium 3.4 L (3.5-5.1) mmol/L Chloride 104 (98-107) mmol/L Carbon Dioxide 21.5 (21.0-32.0) mmol/L Anion Gap 15.9 BUN 23.0 H (7.0-18.0) mg/dL Creatinine 1.82 H (0.70-1.30) mg/dL Est GFR ( Amer) 47 L (>=60) Est GFR (Non-Af Amer) 39 L (>=60) BUN/Creatinine Ratio 12.6 Glucose 102 (74-106) mg/dL Lactate 2.1 H (0.4-2.0) mmol/L Calcium 9.4 (8.5-10.1) mg/dL Discharge Plan Discharge Chief Complaint: Back Pain/Injury Clinical Impression: Calculus of left kidney Patient Disposition: Admitted as Observation Time of Disposition Decision: 08:57 Condition: Fair Discharge Date/Time: 03/31/24 09:15
[2024-03-31 07:34] LABS: Lactate/Lactic Acid 2.1 mmol/L (0.4-2.0)
[2024-03-31] MEDS: 0.9 % SODIUM CHLORIDE 1,000 ML 1000 ML IV (09:28)
--- OUTSIDE RECORDS SUMMARY | 2024-03-31 09:42 | XMS_ITS | CCD ---
Author Organization [facility] Care Team Providers Care Personal Care Assistant Name Role Phone OMKAR CASTREJON Primary Care [...] MIREILLE GARCIA Date: 2020-07-06 14:36 Normal [facility] XR TSPINE 2 VIEWS EXAMINATION: XR TSPINE [...] SIM MCLAUGHLIN Date: 2020-07-06 14:28 Normal [facility] CBC AUTO DIFFon 10-10-2019 Basophils (Bld) [#/Vol] 0.0 103/ul Normal 0.0-0.1 [facility] Comment on above: Performed By: #### C BC #### [facility] [address] [id number] Ed[place] Diana Basophils/100 WBC (Bld) 0.4 % Normal 0.2-2.0 [facility] Comment on above: Performed By: #### C BC #### [facility] [address] [place] [address] Ed[place] Diana Eosinophils (Bld) [#/Vol] 0.1 103/ul Normal 0.0-0.7 [facility] Comment on above: Performed By: #### C BC #### [facility] [address] [place], [place] [phone] Edmond Diana Eosinophils/100 WBC (Bld) 1.4 % Normal 0.9-7.0 [facility] Comment on above: Performed By: #### C BC #### [facility] [address] [place], [place] [phone] Edmond Diana Erythrocyte distribution width (RBC) [Ratio] 13.1 % Normal 11.0-15.0 [facility] Comment on above: Performed By: #### C BC #### [facility] [address] [place], [place] [phone] Ed[place] Diana Hematocrit (Bld) [Volume fraction] 50.0 % Normal 42.0-54.0 [facility] Comment on above: Performed By: #### C BC #### [facility] [address] [place] [address] Ed[place] Diana Hemoglobin (Bld) [Mass/Vol] 16.8 g/dL Normal 14.0-18.0 [facility] Comment on above: Performed By: #### C BC #### [facility] [address], [place] [address] Edmond Diana IG # 0.04 10e3/ul Critically high 0.00-0.03 [facility] Comment on above: Performed By: #### C BC #### [facility] [address] [phone] Ed[place] Diana IG % 0.5 % Normal 0.0-0.5 [facility] Comment on above: Performed By: #### C BC #### [facility] [address] [phone] Ed[place] Diana Lymphocytes (Bld) [#/Vol] 2.4 103/ul Normal 1.2-3.8 [facility] Comment on above: Performed By: #### C BC #### [facility] [address] [place], [place] [phone] Edmond Diana Lymphocytes/100 WBC (Bld) 29.3 % Normal 20.5-60.0 [facility] Comment on above: Performed By: #### C BC #### [facility] [address] [place], [place] [phone] Edmond Diana MANUAL DIFF REQ NO Normal [facility] Comment on above: Performed By: #### C BC #### [facility] [address] [place] [address] Ed[place] Diana MCH (RBC) [Entitic mass] 29.3 pg Normal 25.9-34.0 [facility] Comment on above: Performed By: #### C BC #### [facility] [address] [place], [place] [phone] Edmond Diana MCHC (RBC) [Mass/Vol] 33.6 g/dL Normal 29.9-35.2 [facility] Comment on above: Performed By: #### C BC #### [facility] [address] [place], [place] [phone] Edmond Diana MCV (RBC) [Entitic vol] 87.1 fL Normal 80.0-94.0 [facility] Comment on above: Performed By: #### C BC #### [facility] [address], [place] [address] Ed[place] Diana Monocytes (Bld) [#/Vol] 0.7 103/ul Normal 0.3-0.8 [facility] Comment on above: Performed By: #### C BC #### [facility] [address], [place] [address] Ed[place] Diana Monocytes/100 WBC (Bld) 8.2 % Normal 1.7-12.0 [facility] Comment on above: Performed By: #### C BC #### [facility] [address] [place] [address] Ed[place] Diana Neutrophils (Bld) [#/Vol] 4.8 103/ul Normal 1.4-6.5 [facility] Comment on above: Performed By: #### C BC #### [facility] [address] [place] [address] Ed[place] Diana Neutrophils/100 WBC (Bld) 60.2 % Normal 43.0-75.0 [facility] Comment on above: Performed By: #### C BC #### [facility] [address] [place] [address] Ed[place] Diana Platelet mean volume (Bld) [Entitic vol] 10.2 fL Normal 9.5-13.5 [facility] Comment on above: Performed By: #### C BC #### [facility] [address] [place] [address] Ed[place] Diana Platelets (Bld) [#/Vol] 192 103/ul Normal 150-450 [facility] Comment on above: Result Comment: Plat elet clumps seen on slide. Count may be falsely decreased. Performed By: #### C BC #### [facility] [address] [place] [address] Ed[place] Diana RBC (Bld) [#/Vol] 5.74 106/ul Normal 4.70-6.10 [facility] Comment on above: Performed By: #### C BC #### [facility] [address] [place] [address] Ed[place] Diana WBC (Bld) [#/Vol] 8.0 103/ul Normal 4.0-11.0 [facility] Comment on above: Performed By: #### C #### [facility] [address] [phone] ABD/PELVIS WO CONon 10-10 CT ABD/PELVIS WO CON Patient: LIBERTY FERMIN Exam Date: 10/10/2019 : 1970 Gender:M Ordering : SHARLA MAGDALENO Admission #: [id number] Family : DR SUSY STILL D.O. Order #: [id number] CLICK HERE TO VIEW EXAM RADIOLOGY REPORT [...] M.D. on 10/10/2019 at 13:08 Normal [facility] CULTURE URINEon 10-10-2019 CULTURE URINE Culture Observations : NO GROWTH Normal [facility] Comment on above: Performed By: #### U RCX #### [facility] [address] [place], [place] [phone] Ed[place] Diana ER URINE PROFILEon 9 Bilirubin [Mass/Vol] SMALL Normal NEGATIVE [facility] Comment on above: Performed By: #### DAMIÁN ROMERORO #### [facility] [address] [place] [address] [place] Diana BLOOD LARGE Normal NEGATIVE [facility] Comment on above: Performed By: #### DAMIÁN ROMERORO #### [facility] [address] [place] [address] [place] Diana Clarity (U) CLEAR Normal [facility] Comment on above: Performed By: #### DAMIÁN ROMERORO #### [facility] [address] [place] [address] Ed[place] Diana Color (U) BROWN Normal YELLOW [facility] Comment on above: Performed By: #### DAMIÁN ROMERORO #### [facility] [address] [place] [address] [place] Diana ERUAHD A micrscopic examination will be performed if indicated. Normal [facility] Comment on above: Performed By: #### DAMIÁN ROMERORO #### [facility] [address] [place] [address] Ed[place] Diana Glucose [Mass/Vol] Negative Normal NEGATIVE [facility] Comment on above: Performed By: #### DAMIÁN ROMERORO #### [facility] [address] [place] [address] [place] Diana Ketones Ql (U) Negative Normal NEGATIVE [facility] Comment on above: Performed By: #### DAMIÁN ROMERORO #### [facility] [address] [place] [address] [place] Diana Nitrite Ql (U) Negative Normal NEGATIVE [facility] Comment on above: Performed By: #### DAMIÁN ROMERORO #### [facility] [address] [phone] [place] Diana pH (Bld) 6.0 Normal 5-9 [facility] Comment on above: Performed By: #### CAIO ROMERO #### [facility] [address] [phone] [place] Diana Protein (U) [Mass/Vol] 100 mg/dL Normal [facility] Comment on above: Performed By: #### CAIO ROMERO #### [facility] [address] [place], [place] [phone] [place] Diana SPEC GRAVITY 1.025 Normal 1.005-<=1.025 [facility] Comment on above: Performed By: #### CAIO ROMERO #### [facility] [address] [place], [place] [phone] [place] Diana UR MICRO IND INDICATED Normal [facility] Comment on above: Performed By: #### CAIO ROMERO #### [facility] [address] [place] [address] [place] Diana Urobilinogen Qn (U) 0.2 EU/dl Normal [facility] Comment on above: Performed By: #### CAIO ROMERO #### [facility] [address] [place], [place] [phone] [place] Diana WBC (Bld) [#/Vol] Negative Normal NEGATIVE [facility] Comment on above: Performed By: #### CAIO ROMERO #### [facility] [address] [place], [place] [phone] [place] Diana LACTATE/LACTIC ACIDon 2018 Lactate [Moles/Vol] 2.4 mmol/L Critically high 0.7-2.1 [facility] Comment on above: Performed By: #### L ACT #### [facility] [address] [place] [address] [place] Diana Lactate [Moles/Vol] 4.2 mmol/L Critically high 0.7-2.1 [facility] Comment on above: Result Comment: crit ical value repeated and verified Performed By: #### L ACT #### [facility] [address] [place], [place] [phone] Edmond Dinaa LIPASEon 10-10-2019 Lipase [Catalytic activity/Vol] 121.0 U/L Normal 23.0-300.0 [facility] Comment on above: Performed By: #### L IPA, CMP #### [facility] [address] [place], [place] [phone] Edmondjose Ortiz PROF 14(COMP METB)on 019 Albumin [Mass/Vol] 4.4 g/dL Normal 3.5-5.0 [facility] Comment on above: Performed By: #### L IPA, CMP #### [facility] [address] [place], [place] [phone] [place] Diana Albumin/Globulin [Mass ratio] 1.3 {ratio} Normal [facility] Comment on above: Performed By: #### L IPA, CMP #### [facility] [address] [place] [address] Ed[place] Diana ALP [Catalytic activity/Vol] 86 U/L Normal 38-126 [facility] Comment on above: Performed By: #### L IPA, CMP #### [facility] [address] [place] [address] Ed[place] Diana ALT [Catalytic activity/Vol] 42 U/L Normal 21-72 [facility] Comment on above: Performed By: #### L IPA, CMP #### [facility] [address] [place], [place] [phone] [place] Diana Anion gap [Moles/Vol] 18.8 mmol/L Normal [facility] Comment on above: Performed By: #### L IPA, CMP #### [facility] [address] [place], [place] [phone] Edmond Diana AST [Catalytic activity/Vol] 25 U/L Normal 17-59 [facility] Comment on above: Performed By: #### L IPA, CMP #### [facility] [address] [place] [address] [place] Diana Bilirubin Ql (U) 0.5 mg/dL Normal 0.2-1.3 [facility] Comment on above: Performed By: #### L IPA, CMP #### [facility] [address] [phone] [place] Diana Calcium [Mass/Vol] 9.9 mg/dL Normal 8.4-10.2 [facility] Comment on above: Performed By: #### L IPA, CMP #### [facility] [address] [phone] [place] Diana Chloride [Moles/Vol] 104 mmol/L Normal 98-107 [facility] Comment on above: Performed By: #### L IPA, CMP #### [facility] [address] [phone] Ed[place] Diana CO2 [Moles/Vol] 22.5 mmol/L Normal 22.0-30.0 [facility] Comment on above: Performed By: #### L IPA, CMP #### [facility] [address] [phone] [place] Diana Creatinine [Mass/Vol] 1.29 mg/dL Critically high 0.66-1.25 [facility] Comment on above: Performed By: #### L IPA, CMP #### [facility] [address] [phone] [place] Diana EGFR-AF DJIBOUTIAN >60 Normal >=60 [facility] Comment on above: Performed By: #### L IPA, CMP #### [facility] [address] [phone] [place] Diana EGFR-NON AF DJIBOUTIAN 59 mL/min/1.73m2 Critically low >=60 [facility] Comment on above: Performed By: #### L IPA, CMP #### [facility] [address] [phone] Ed[place] Diana Globulin (S) [Mass/Vol] 3.3 g/dL Normal [facility] Comment on above: Performed By: #### L IPA, CMP #### [facility] [address] [phone] [place] Diana Glucose [Mass/Vol] 118 mg/dL Critically high 74-106 T [facility] Comment on above: Performed By: #### L IPA, CMP #### [facility] [address] [address] [place] Diana Potassium [Moles/Vol] 3.3 mmol/L Critically low 3.4-5.0 [facility] Comment on above: Performed By: #### L IPA, CMP #### [facility] [address] [phone] Ed[place] Diana Protein [Mass/Vol] 7.7 g/dL Normal 6.1-8.2 [facility] Comment on above: Performed By: #### L IPA, CMP #### [facility] [address] [phone] [place] Diana Sodium [Moles/Vol] 142 mmol/L Normal 137-145 [facility] Comment on above: Performed By: #### L IPA, CMP #### [facility] [address] [place], [place] [phone] [place] Diana Urea nitrogen [Mass/Vol] 11.0 mg/dL Normal 9.0-20.0 [facility] Comment on above: Performed By: #### L IPA, CMP #### [facility] [address] [phone] Ed[place] Diana Urea nitrogen/Creatinine [Mass ratio] 8.5 mg/mg Normal [facility] Comment on above: Performed By: #### L IPA, CMP #### [facility] [address] [phone] [place] Diana URINE MICROSCOPIC ONLYon Bacteria LM.HPF (Urine sed) [#/Area] SMALL Normal NONE SEEN [facility] Comment on above: Performed By: #### CAIO ROMERO #### [facility] [address] [phone] [place] Diana CAST NONE SEEN Normal NONE SEEN [facility] Comment on above: Performed By: #### CAIO ROMERO #### [facility] [address] [phone] Ed[place] Diana Crystals LM Nom (Urine sed) NONE SEEN Normal NONE SEEN [facility] Comment on above: Performed By: #### CAIO ROMERO #### [facility] [address] [address] [place] CULTURE INDICATED Normal [facility] Comment on above: Performed By: #### CAIO ROMERO #### [facility] [address] [phone] [place] Diana Epithelial cells LM.HPF (Urine sed) [#/Area] RARE Normal [facility] Comment on above: Performed By: #### CAIO ROMERO #### [facility] [address] [phone] [place] Diana MUCOUS NONE SEEN Normal NONE SEEN [facility] Comment on above: Performed By: #### ACIO ROMERO #### [facility] [address] [phone] Ed[place] Diana RBC (U) [#/Vol] /uL Normal 0-2 [facility] Comment on above: Performed By: #### CAIO ROMERO #### [facility] [address] [address] [place] Diana WBC (Bld) [#/Vol] 0-2 Normal NONE SEEN [facility] Comment on above: Performed By: #### CAIO ROMERO #### [facility] [address] [id number] [place] Diana Yeast LM Ql (Urine sed) PRESENT Normal [facility] Comment on above: Performed By: #### CAIO ROMERO #### [facility] [address] [phone] Ed[place] Diana Encounters Encounter Date Encounter Type Care Provider Facility Start: 07-06-2020 End: 07-07-2020 [facility] Start: 10-10-2019 End: 10-10-2019 Patient encounter procedure [facility]:H[facility] Payers Date Payer Category Payer Unknown [id number] 1970 Unknown [id number] 1959 Unknown [id number] Summary Purpose Family History No Family History Records Found Advance Directives No Advanced Directives Records Found Additional Source Comments (unrecognized sect ion and content) No Status Records Found INFORMATION SOURCE (unrecogn ized section and content) DATE CREATED AUTHOR 07/13/2020 The [facility] FOR RECORDS PERTAINING TO PATIENTS WHO ARE [...] BE BASED ON THE PRIMARY CLINICAL RECORDS. [facility]. provides no warranty or guarantee of the accuracy or completeness of information in this document.
[2024-03-31 10:00] LABS: Lactate/Lactic Acid 1.5 mmol/L (0.4-2.0)
--- NOTE | 2024-03-31 11:09 | P.HP_ITS ---
HPI H&P: HPI History of Present Illness Chief complaint: L KIDNEY STONE Narrative: 54 y/o male to ER with left flank pain. Seen 03/29 after sudden onset left flank pain. Developed severe nausea and vomiting due to pain. CT showed bilateral kidney stones and stone in left UPJ with mild hydronephrosis. Discharged home with percocet and flomax. Did not do well after home. Continued pain and decreased oral intake. Continued to have pain in left flank. Pain worsened and returned to ER. Labs showed worsening renal function. KUB negative for stone in ureter but showed bilateral stones. ER discussed with urology who recommended NPO for cystoscopy and admitted. Opioid HPI Opioid Management Most Recent Opioid Data: Last Pain Scale 4 03/31/24 11:00 Last Pain Assessment 03/31/24 11:00 Last ED Pain Assessment 03/31/24 06:51 Last MAR Pain Assessment 03/31/24 10:26 Last ORT Total Score 0 03/31/24 09:37 Last ORT Risk Category Low Risk 03/31/24 09:37 Review of Systems ROS Constitutional Denies: fever, chills or fatigue Cardiovascular Denies: chest pain, palpitations or edema Respiratory Denies: shortness of breath, cough or wheezing Gastrointestinal Reports: nausea; Denies: abdominal pain, vomiting or diarrhea Genitourinary Reports: blood in urine and other (Flank pain); Denies: painful u rination [facility] Medical History (Updated 03/31/24 @ 11:17 by Zana Camp MD) Thoracic spondylosis ?M47.814 - Spondylosis without myelopathy or radiculopathy, thoracic region (ICD-10) Gout ?M10.9 - Gout, unspecified (ICD-10) Surgical History (Updated 03/31/24 @ 09:31 by Raina Bey) History of colon resection ?Z90.49 - Acquired absence of other specified parts of digestive tract (ICD- 10) Family History (Updated 03/31/24 @ 09:33 by Raina Bey) Mother Family history not known due to adoption Social History Highest level of school completed/degree received: Bachelor's degree Do you think of yourself as: straight/heterosexual Gender Identity: male Meds Home Medications and Allergies Home Medications ?Medication ?Instructions ?Recorded ?Confirmed ?Type naproxen 500 mg tablet 500 mg PO BID PRN pain #14 tabs 03/29/24 03/31/24 Rx ondansetron 4 mg disintegrating 4 mg PO Q8H PRN nausea and 03/29/24 03/31/24 Rx tablet vomiting 4 days #16 tabs oxycodone-acetaminophen 5 mg-325 1 tab PO Q4H PRN pain #18 tabs 03/29/24 03/31/24 Rx mg tablet (Percocet) tamsulosin 0.4 mg capsule (Flomax) 0.4 mg PO DAILY #14 caps 03/29/24 03/31/24 Rx Allergies Allergy/AdvReac Type Severity Reaction Status Date / Time No Known Drug Allergies Allergy Verified 03/31/24 06:43 Exam Constitutional Vital Signs, click to edit/add: Last Vital Signs Temp 98.1 F 03/31/24 09:43 Pulse 56 L 03/31/24 09:43 Resp 18 03/31/24 09:43 BP 133/64 03/31/24 09:43 Pulse Ox 97 03/31/24 09:43 O2 Del Method Room Air 03/31/24 09:43 Documenting provider has reviewed patient's vital signs: yes Common normals: oriented x3 and alert General appearance: not comfortable HENMT Common normals: normocephalic Eye Common normals: PERRL and EOMs intact bilaterally Respiratory Common normals: normal respiratory effort and clear to auscultation bilaterally Cardio Common normals: regular rate, regular rhythm, no gallops, no murmurs and no rub GI Common normals: Normal to inspection, nondistended, normoactive bowel sounds present and non-tender Extremity Common normals: no pedal edema Results Labs Labs: Short CBC 03/31/24 Range/Units 06:45 WBC 11.9 H (4.0-11.0) 10^3/uL Hgb 14.9 (14.0-18.0) g/dL Hct 44.4 (42.0-54.0) % Plt Count 235 (150-450) 10^3/uL BMP 03/31/24 06:45 Sodium 138 Potassium 3.4 L Chloride 104 Carbon Dioxide 21.5 BUN 23.0 H Creatinine 1.82 H Glucose [address] scan - abdomen: Attestation: I have reviewed the pertinent imaging results. Assessment and Plan Assessment and Plan (1) Calculus of left kidney: (2) Renal colic on left side: (3) DONOVAN (acute kidney injury): (4) Hypertension: Qualifiers: Hypertension type: primary hypertension Qualified Code(s): I10 - Essential (primary) hypertension Plan Recent stone and failed outpatient treatment. Consult urology for cystoscopy and keep NPO. Start IV fluids. Give dilaudid for pain and zofran for nausea. Start rocephin for possible UTI. Monitor labs and vitals.
[2024-03-31] MEDS: CEFTRIAXONE 1,000 MG in 0.9 % SODIUM CHLORIDE 50 ML 100 MG IV (11:18)
[2024-03-31] MEDS: 0.9 % SODIUM CHLORIDE 250 ML 10 ML IV (11:18)
--- NOTE | 2024-03-31 11:52 | CM.NOTE ---
Rounds made with Dr. Camp. Plan of care reviewed with Mr. Leslie including Urology referral and medications. Mr. Leslie verbalizes understanding.
[2024-03-31] MEDS: LACTATED RINGER'S SOLUTION 1,000 ML 100 ML IV ×2 (13:06→23:23)
[2024-03-31 14:47] LABS: Bilirubin Urine NEGATIVE (NEGATIVE); Blood Urine LARGE (NEGATIVE); Clarity Urine SL CLOUDY (CLEAR); Color Urine YELLOW (YELLOW); Glucose Urine UA NEGATIVE (NEGATIVE); Ketones Urine TRACE mg/dL (NEGATIVE); Leukocyte Esterase Urine SMALL (NEGATIVE); Nitrite Urine NEGATIVE (NEGATIVE); Protein Urine 100 mg/dL (NEG/TRACE); pH Urine 6.5 (5.0-9.0)
[2024-03-31 14:48] LABS: Urine Microscopic Indicated YES
[2024-03-31 15:01] LABS: Bacteria Urine TRACE #/HPF (NONE SEEN); Cast Seen? NONE SEEN #/LPF (NONE SEEN); Crystals Seen? None Seen #/HPF (None Seen); Mucus Urine NONE SEEN (NONE SEEN); RBC Urine 75-100 #/HPF (0-2); Squamous Epithelial Cell Urine RARE #/LPF (NONE/RARE); Urine Culture Indicated YES
--- NOTE | 2024-03-31 19:34 | PC.NURSE ---
Pt currently in OR for Cystogram with Provider. Not in room.
--- NOTE | 2024-03-31 19:47 | OP_ITS ---
OPERATION DATE: ??03/31/2024 PREOPERATIVE DIAGNOSIS:? 1.? Hydronephrosis with ureteral calculus, left. 2.? Acute kidney injury. 3.? Bilateral renal calculi. 4.? Flank pain. POSTOPERATIVE DIAGNOSIS:? 1.? Hydronephrosis with ureteral calculus, left. 2.? Acute kidney injury. 3.? Bilateral renal calculi. 4.? Flank pain. PROCEDURE: 1.? Cystoscopy. 2.? Left retrograde pyelogram. 3.? Left ureteroscopy with ureteroscopic stone basket extraction. SURGEON:? Sid Spencer M.D. COMPLICATIONS:? None. ANESTHESIA:? Dr. Veloz with a general by LMA. INDICATIONS:? Mr. Leslie is a 54-year-old male with a positive prior history of kidney stones in the remote past, who had presented to the ER a couple days ago and then again earlier today for admission.? He was found to have worsening renal function and was admitted with recommendation for operative intervention with inherent risk of bleeding, infection, stent pain and irritation, need for additional procedural intervention.? He wants to proceed.? He did receive preoperative antibiotic earlier today by primary service. He does have sequential compression devices in place and functional to the bilateral lower extremities throughout the case.? PROCEDURE:? He was now brought back to the operating room and, after the successful induction of general anesthesia by LMA by Dr. Veloz, he was placed in the modified dorsolithotomy position and prepped in the usual fashion with Betadine solution.? He was draped appropriately.? Pressure points were padded.? 2% Xylocaine jelly was placed per urethra and a well lubricated 22-Maldivian cystourethroscope with 30 degree lens was then passed into the bladder without difficulty.? Anterior urethra was within normal limits.? He has moderate prostatic hypertrophy in the lateral lobes and a moderately high riding bladder neck.? Once into the bladder, [place] endoscopy revealed no tumors, no stones, no diverticula.? Orifices are normal, except on the left side, there does appear to be the distal aspect of a small stone, right at the ureterovesical junction.? I was able to negotiate a 0.035 Guidewire up into the left ureteral orifice, but this pushed the stone proximally several centimeters.? The wire was placed into the kidney.? This had been performed after retrograde pyelogram.? At this point, I decided to proceed with ureteroscopy.? With the safety wire left in place, the cystoscope was removed and the semi-rigid ureteroscope was then passed into the urethra and into urinary bladder.? I was able to negotiate this alongside the wire, and the stone was encountered 2-3 cm proximally.? I felt that it was small enough to simply basket extract.? This was accomplished utilizing a 4 Flat-Wire basket.? Stone was retrieved and sent to Pathology for evaluation.? Due to the minimal manipulation of the ureter, I did not feel that a stent was indicated.? Therefore, the wire was removed, bladder emptied and the procedure was terminated.? He tolerates it well.? Stone was sent Pathology for evaluation.? He was transferred to the [facility] and then back to PACU in satisfactory condition, stable vital signs.? Plan will be for transfer to the floor for postoperative management and, at the discretion of primary service, he can be discharged home.? I then had a discussion with the patient?s post-op, and he is in agreement with the plan as outlined.? I did note on the patient?s previous CT scan that he does have remaining bilateral renal calculi, up to 8 mm in size on the right side, and decision will have to made regarding possible lithotripsy versus conservative management over time.? JOSE
--- NOTE | 2024-03-31 20:05 | P.URCN_ITS ---
Urology - CN: HPI Date of Consult Consult date: 03/31/24 Requesting Physician: Zana Camp MD Primary Care Provider: Zana Camp MD Consult Narrative Reason for consult IM: Obstructing stone, left upper ureter, DONOVAN Narrative: This is a 54 year old white male with remote kidney stone history presents for the second time to ER today after being seen a couple days ago. CT scan at prior visit shows 5 mm left proximal stone with hydronephrosis. Pain continued, more severe, prompting repeat ER visit. Found to have DONOVAN with bump in his creatinine. Pain intermittent and pt needing continued IV pain meds. No fever, no chills. Urine not infected The entire PMH,PSH,ROS, family and social hx, meds, allergies unchanged from the admission H and P performed earlier today by Dr. Camp. cc:: CC: Zana Camp MD [facility] Medical History (Updated 03/31/24 @ 20:10 by Robles Spencer MD) Thoracic spondylosis ?M47.814 - Spondylosis without myelopathy or radiculopathy, thoracic region (ICD-10) Gout ?M10.9 - Gout, unspecified (ICD-10) Surgical History (Updated 03/31/24 @ 09:31 by Raina Bey) History of colon resection ?Z90.49 - Acquired absence of other specified parts of digestive tract (ICD- 10) Family History (Updated 03/31/24 @ 09:33 by Raina Bey) Mother Family history not known due to adoption Social History Highest level of school completed/degree received: Bachelor's degree Do you think of yourself as: straight/heterosexual Gender Identity: male Meds Home Medications and Allergies Home Medications ?Medication ?Instructions ?Recorded ?Confirmed ?Type naproxen 500 mg tablet 500 mg PO BID PRN pain #14 tabs 03/29/24 03/31/24 Rx ondansetron 4 mg disintegrating 4 mg PO Q8H PRN nausea and 03/29/24 03/31/24 Rx tablet vomiting 4 days #16 tabs oxycodone-acetaminophen 5 mg-325 1 tab PO Q4H PRN pain #18 tabs 03/29/24 03/31/24 Rx mg tablet (Percocet) tamsulosin 0.4 mg capsule (Flomax) 0.4 mg PO DAILY #14 caps 03/29/24 03/31/24 Rx Allergies Allergy/AdvReac Type Severity Reaction Status Date / Time No Known Drug Allergies Allergy Verified 03/31/24 06:43 Exam Narrative Exam Narrative: HEENT WNL Heart; RRR Lungs clear Abd: soft, NT, neg. peritoneal signs : normal male external genitalia Minimal left lower back tenderness at lower CVA LE: normal Normal neurologic exam Constitutional Vital Signs, click to edit/add: Last Vital Signs Temp 98.2 F 03/31/24 14:00 Pulse 53 L 03/31/24 14:00 Resp 18 03/31/24 14:00 BP 134/74 03/31/24 14:00 Pulse Ox 95 03/31/24 14:00 O2 Del Method Room Air 03/31/24 14:00 Results Labs Labs: Short CBC 03/31/24 Range/Units 06:45 WBC 11.9 H (4.0-11.0) 10^3/uL Hgb 14.9 (14.0-18.0) g/dL Hct 44.4 (42.0-54.0) % Plt Count 235 (150-450) 10^3/uL BMP 03/31/24 06:45 Sodium 138 Potassium 3.4 L Chloride 104 Carbon Dioxide 21.5 BUN 23.0 H Creatinine 1.82 H Glucose 102 Calcium 9.4 Urine 03/31/24 Range/Units 12:45 Urine Color Yellow (YELLOW) Urine Clarity Sl cloudy (CLEAR) Urine pH 6.5 (5.0-9.0) Ur Specific [place] 1.020 (1.005-1.025) Urine Protein 100 A (NEG/TRACE) mg/dL Urine Glucose (UA) Negative (NEGATIVE) mg/dL Additional Findings Additional findings: Viewed CT scan from prior visit. Viewed KUB from earlier today, viewed UA, viewed labs. Urology Assessment and Plan Assessment and Plan (1) Renal colic on left side: (2) DONOVAN (acute kidney injury): (3) Hydronephrosis with ureteral calculus: (4) Bilateral kidney stones: Assessment and Plan: Up to 8 mm on the right, up to 5 mm on the left. multiple bilateral. Plan Discussed extensively with the patient and his . Options include continued conservative management, versus operative intervention, which is what I recommend due to worsening renal function and failure to pass the stone. This could continue to worsen over time. They wish me to proceed. IV abx already given earlier today. Anesthesia risks discussed, including heart and lung problems. Thanks for consultation.
[2024-04-01 03:51] VITALS: O2SAT 93
[2024-04-01] MEDS: KETOROLAC TROMETHAMINE 30 MG/ML VIAL IVP ×2 (03:57→08:25)
[2024-04-01 04:02] VITALS: BP 146/97; PULSE 76; TEMP 37; O2SAT 94
[2024-04-01 04:51] LABS: Basophils Percent Auto 0.1 % (0.2-2.0); Hematocrit 42.6 % (42.0-54.0); Immature Granulocytes Abs Auto 0.02 10^3/uL (0.00-0.03); Immature Granulocytes Pct Auto 0.2 % (0.0-0.5); Lymphocytes Absolute Auto 0.8 10^3/uL (1.2-3.8); Lymphocytes Percent Auto 9.4 % (20.5-60.0); Mean Corpuscular HGB Conc 32.9 g/dL (29.9-35.2); Mean Corpuscular Hemoglobin 28.7 pg (25.9-34.0); Mean Corpuscular Volume 87.5 fL (80.0-94.0); Mean Platelet Volume 10.5 fL (9.5-13.5); Monocytes Absolute Auto 0.5 10^3/uL (0.3-0.8); Monocytes Percent Auto 5.3 % (1.7-12.0); Neutrophils Absolute Auto 7.3 10^3/uL (1.4-6.5); Platelet Count 219 10^3/uL (150-450); Red Blood Count 4.87 10^6/uL (4.70-6.10); Red Cell Distribution Width 12.7 % (11.0-15.0); White Blood Count 8.6 10^3/uL (4.0-11.0)
[2024-04-01 05:03] LABS: Anion Gap 11.9; BUN Creatinine Ratio 14.5; Calcium 9.1 mg/dL (8.5-10.1); Chloride 105 mmol/L (98-107); Estimated GFR (African America >60 (>=60); Estimated GFR (Non-African Ame >60 (>=60); Glucose 113 mg/dL (74-106); Potassium 3.9 mmol/L (3.5-5.1); Sodium 138 mmol/L (136-145)
[2024-04-01 08:12] VITALS: BP 151/84; PULSE 64; TEMP 36.7; O2SAT 93
--- NOTE | 2024-04-01 10:49 | PM.DS1 ---
DS: Providers Provider Date of admission: 03/31/24 09:16 Primary care physician: Zana Hernández MD DS: Diagnosis Discharge Diagnosis (1) Bilateral kidney stones: (2) Hydronephrosis with ureteral calculus: (3) Renal colic on left side: (4) DONOVAN (acute kidney injury): (5) Hypertension: Qualifiers: Hypertension type: primary hypertension Qualified Code(s): I10 - Essential (primary) hypertension DS: Summary Hospital Course Hospital Course: Reason for admission: See H&P for details. 54 y/o male to ER with left flank pain. Seen 03/29 after sudden onset left flank pain. Developed severe nausea and vomiting due to pain. CT showed bilateral kidney stones and stone in left UPJ with mild hydronephrosis. Discharged home with percocet and flomax. Did not do well after home. Continued pain and decreased oral intake. Continued to have pain in left flank. Pain worsened and returned to ER. Labs showed worsening renal function. KUB negative for stone in ureter but showed bilateral stones. ER discussed with urology who recommended NPO for cystoscopy and admitted. Hospital course: Started rocephin for possible infection. Started dilaudid for pain and zofran for nausea. Urology consulted and took patient to OR for cystoscopy. Able to remove stone in left ureter but still 8 mm stone in right kidney. No stents placed. Did well after procedure and pain resolved. Advanced diet and tolerated well. Discharged home in stable condition. Resume home medication as directed. Follow up with urology as scheduled. Follow up in office in 1-2 weeks. Time Spent with Patient Time attestation: Total time spent providing and/or coordinating discharge services: Time spent: less than 30 minutes Exam Constitutional Vital Signs, click to edit/add: Last Vital Signs Temp 98.0 F 04/01/24 08:12 Pulse 64 04/01/24 08:12 Resp 16 04/01/24 08:13 BP 151/84 H 04/01/24 08:12 Pulse Ox 93 L 04/01/24 08:12 O2 Del Method Room Air 04/01/24 08:12 Documenting provider has reviewed patient's vital signs: yes Common normals: no apparent distress, oriented x3 and alert HENMT Common normals: normocephalic Eye Common normals: PERRL and EOMs intact bilaterally Respiratory Common normals: normal respiratory effort and clear to auscultation bilaterally Cardio Common normals: regular rate, regular rhythm, no gallops, no murmurs and no rub GI Common normals: Normal to inspection, nondistended, normoactive bowel sounds present and non-tender Extremity Common normals: no pedal edema DS: Data Data Completed and Pending Labs on day of discharge: Labs from last 24 hours 04/01/24 03/31/24 04:25 12:45 WBC 8.6 RBC 4.87 Hgb 14.0 Hct 42.6 MCV 87.5 MCH 28.7 MCHC 32.9 RDW 12.7 Plt Count 219 MPV 10.5 Neut % (Auto) 85.0 H Lymph % (Auto) 9.4 L [place] % (Auto) 5.3 Eos % (Auto) 0.0 L Baso % (Auto) 0.1 L Neut # (Auto) 7.3 H Lymph # (Auto) 0.8 L [place] # (Auto) 0.5 Eos # (Auto) 0.0 Baso # (Auto) 0.0 Abs Immat Gran (auto) 0.02 Imm/Tot Granulo (auto) 0.2 Sodium 138 Potassium 3.9 Chloride 105 Carbon Dioxide 25.0 Anion Gap 11.9 BUN 18.0 Creatinine 1.24 Est GFR ( Amer) >60 Est GFR (Non-Af Amer) >60 BUN/Creatinine Ratio 14.5 Glucose 113 H Calcium 9.1 Urine Color Yellow Urine Clarity Sl cloudy Urine pH 6.5 Ur Specific [place] 1.020 Urine Protein 100 A Urine Glucose (UA) Negative Urine Ketones Trace A Urine Occult Blood Large A Urine Nitrite Negative Urine Bilirubin Negative Urine Urobilinogen 1.0 Ur Leukocyte Esterase Small A Urine RBC 75-100 A Urine WBC 5-10 A Ur Squamous Epith Cells Rare Urine Crystals None seen Urine Bacteria Trace A Urine Casts None seen Urine Mucus None seen Ur Culture Indicated? Yes Discharge Plan Discharge Disposition: Home, Self-Care Condition: Fair Discharge Medications: New lisinopril-hydrochlorothiazide 20-12.5 mg tablet 1 tab PO DAILY Qty: 90 0RF allopurinol 300 mg tablet 300 mg PO DAILY Qty: 90 0RF Continued tamsulosin [Flomax] 0.4 mg capsule 0.4 mg PO DAILY Qty: 14 0RF naproxen 500 mg tablet 500 mg PO BID PRN (Reason: pain) Qty: 14 0RF ondansetron 4 mg tablet,disintegrating 4 mg PO Q8H PRN (Reason: nausea and vomiting) 4 Days Qty: 16 0RF oxycodone-acetaminophen [Percocet] 5-325 mg tablet 1 tab PO Q4H PRN (Reason: pain) Qty: 18 0RF Activity: increase activity as tolerated Diet: advance to your usual diet Print Language: Vietnamese Patient Instructions: Acute Kidney Injury (DC), Kidney Stones (DC) Forms: Portal Instructions Follow Up Appointments: Your CT scan did show multiple kidney stones in both kidneys, up to 8 mm on the right side. We can either monitor you over time, or we could consider externally blasting the stones to break them up at any time. Please think about these options and let me know your thoughts. Follow up with Dr Spencer at [place] office [address] [place] [address] on October 07, 2024 @ 1030 AM please complete xray one week prior to appt Follow up appt needs to be scheduled with dr hernández for within two weeks. please call [phone] to schedule
--- NOTE | 2024-04-01 10:51 | CM.NOTE ---
Rounds made with Dr. Camp. Plan for discharge today. Follow up with PCP in ~2 weeks. Appointment made with Urology in September. Mr. Leslie in agreement.
--- NOTE | 2024-04-02 12:26 | CM.DCFOLLOWU ---
Person spoke with:patient How are you feeling? well How is your pain? some residual pain earlier, but at this time no pain Did you understand your discharge instructions? yes Do you have any questions about your discharge instructions? no Were you given any prescriptions at discharge? yes Were you able to get your prescriptions filled? yes Do you understand how to take your medications as ordered? yes Do you have any questions about your follow up appointment and do you plan to keep your follow up appointment? no questions, has all follow ups scheduled Is there anything else that you would like to discuss? no Questions/Comments/Concerns/Other: N/A
== END 2024-04-01 11:03 | disposition home or self-care (01) ==
LOC: ER 08:57 → MS 09:22
PROVIDERS: Urology; Admitting Provider Family Medicine; Emergency Provider Internal Medicine; PCP Family Medicine; Visit Provider Family Medicine
PROC: (CPT 918; principal; 2024-03-31 18:30)
DX: N13.2 Hydronephrosis with renal and ureteral calculous obstruction (principal); N17.9 Acute kidney failure, unspecified; I10 Essential (primary) hypertension; M10.9 Gout, unspecified; M47.814 Spondylosis without myelopathy or radiculopathy, thoracic region; Z90.49 Acquired absence of other specified parts of digestive tract; Z79.899 Other long term (current) drug therapy
CPT/HCPCS: 52352; 36415; 74018; 76000; 80048; 81001; 82365; 83605; 85025; 87086; 94761; 96365; 96366; 96375; 96376; 99285; 99999; C1874; G0378; J1094; J1170; J2704

== ENCOUNTER 2024-09-30 13:51 | Outpatient (OUT) | payer BC, SELFPAY ==
--- NOTE | 2024-09-30 14:09 | XR_ITS ---
The [address] [address] Patient Name: LIBERTY FERMIN MRN: [id number] date: 1970 Sex: M Assigned Patient Location: RAD Current Patient Location: RAD Accession/Order Number: [id number] Exam Date: 09/30/2024 14:11 Report Date: 10/03/2024 15:40 At the request of: NICKI LOMAS Procedure: XR abdomen 1V EXAMINATION: XR abdomen 1V HISTORY: Kidney Stones follow-up COMPARISON: XR abdomen 03/31/2024 FINDINGS: KIDNEY/URETER - RIGHT: Stable calcifications projecting over mid body and lower pole of right kidney, largest is approximately 6 mm. KIDNEY/URETER - LEFT: Stable appearance of multiple calcifications project over left kidney, largest is approximately 4 mm. PELVIS: Stable right pelvic calcification favoring a phlebolith. Stable calcification inferior margin of left sacroiliac joints favoring atherosclerotic plaque. BOWEL: No abnormal dilation or deviation. BONES: No acute abnormality. OTHER: Negative. No abnormal gaseous collections. XR/XR abdomen 1V IMPRESSION: 1. Grossly stable bilateral nephrolithiasis. 2. No appreciable ureteral stone. Electronically authenticated by: SIM MCLAUGHLIN Date: 10/03/2024 15:40
== END 2024-09-30 13:52 | disposition home or self-care (01) ==
LOC: RAD 13:52
PROVIDERS: PCP Family Medicine; Visit Provider Urology
DX: Z00.00 Encounter for general adult medical examination without abnormal findings (principal); N20.0 Calculus of kidney
CPT/HCPCS: 36415; 74018; 80048; 80061; 80076; 83036; 84443; 85025; G0103

== ENCOUNTER 2024-09-30 13:55 | Outpatient (OUT) | payer BC, SELFPAY ==
[2024-09-30 14:19] LABS: Basophils Percent Auto 0.7 % (0.2-2.0); Eosinophils Absolute Auto 0.1 10^3/uL (0.0-0.7); Eosinophils Percent Auto 1.8 % (0.9-7.0); Hematocrit 42.1 % (42.0-54.0); Immature Granulocytes Abs Auto 0.03 10^3/uL (0.00-0.03); Immature Granulocytes Pct Auto 0.5 % (0.0-0.5); Lymphocytes Absolute Auto 1.7 10^3/uL (1.2-3.8); Lymphocytes Percent Auto 29.9 % (20.5-60.0); Mean Corpuscular HGB Conc 33.3 g/dL (29.9-35.2); Mean Corpuscular Volume 90.1 fL (80.0-94.0); Mean Platelet Volume 9.8 fL (9.5-13.5); Monocytes Absolute Auto 0.3 10^3/uL (0.3-0.8); Monocytes Percent Auto 5.8 % (1.7-12.0); Neutrophils Absolute Auto 3.5 10^3/uL (1.4-6.5); Neutrophils Percent Auto 61.3 % (43.0-75.0); Platelet Count 220 10^3/uL (150-450); Red Blood Count 4.67 10^6/uL (4.70-6.10); Red Cell Distribution Width 13.2 % (11.0-15.0); White Blood Count 5.7 10^3/uL (4.0-11.0)
[2024-09-30 14:55] LABS: Alanine Aminotransferase 31 U/L (16-63); Albumin Globulin Ratio 1.2; Albumin Level 3.7 g/dL (3.4-5.0); Alkaline Phosphatase 91 U/L (46-116); Anion Gap 12.7; Aspartate Amino Transferase 19 U/L (15-37); BUN Creatinine Ratio 11.1; Bilirubin Direct 0.1 mg/dL (0.0-0.2); Bilirubin Total 0.4 mg/dL (0.2-1.0); Calcium 9.3 mg/dL (8.5-10.1); Carbon Dioxide 29.8 mmol/L (21.0-32.0); Chloride 102 mmol/L (98-107); Chol HDL Ratio 4.3; Cholesterol 191 mg/dL (<=200); Estimated GFR (African America >60 (>=60 mL/min/1.73m^2); Estimated GFR (Non-African Ame 55 (>=60 mL/min/1.73m^2); Glucose 154 mg/dL (74-106); HDL Cholesterol 44 mg/dL (40-60); Potassium 3.5 mmol/L (3.5-5.1); Sodium 141 mmol/L (136-145); Thyroid Stimulating Hormone 1.198 uIU/mL (0.358-3.740); Total Protein 6.7 g/dL (6.4-8.2); Triglycerides 259 mg/dL (<=150); VLDL CHOLESTEROL 51.8 mg/dL
[2024-09-30 15:16] LABS: Prostate Specific Antigen Scrn 2.66 ng/mL (<=4.00)
[2024-09-30 18:35] LABS: Estimated Average Glucose 114 mg/dL; Glycohemoglobin A1C 5.6 % (4.5-6.2)
== END 2024-09-30 13:56 | disposition home or self-care (01) ==
LOC: LAB 13:56
PROVIDERS: PCP Family Medicine; Visit Provider Family Medicine
DX: Z00.00 Encounter for general adult medical examination without abnormal findings (principal)
CPT/HCPCS: 36415; 80048; 80061; 80076; 83036; 84443; 85025; G0103